=== PATIENT | female | born 2000 | race Caucasian/White ===

== ENCOUNTER 2019-12-20 20:45 | Emergency (ER) | payer MEDICAID ==
[~2019-12-20] VITALS: Ht 175.3 cm; Wt 70.0 kg
[2019-12-20] MEDS ORDERED: PREDNISONE 20MG TABLET PO STA (21:56)
[2019-12-20] MEDS ORDERED: ALBUTEROL (0.083%) 2.5MG/3ML NEB HHN STA (21:56)
[2019-12-20] MEDS ORDERED: IPRATROPIUM BROMIDE (0.02%) 0.5MG/2.5ML NEB HHN STA (21:56)
[2019-12-20 22:43] LABS: BASOPHILS % 0.2 % (0.0-2.0); EOSINOPHILS % 4.5 % (0.0-5.0); HEMATOCRIT. 37.9 % (36.0-48.0); LYMPHOCYTES % 61.1 % (20.0-50.0); MEAN CORPUSCULAR HEMOGLOBIN 30.2 pg (28.0-32.0); MEAN CORPUSCULAR VOLUME 88.3 fL (81.0-99.0); MEAN PLATELET VOLUME 8.4 fl (7.4-10.4); MONOCYTES % 7.3 % (2.0-8.0); NEUTROPHILS % 26.9 % (40.0-76.0); PLATELET 225 x1000/uL (130-400); RED BLOOD CELL COUNT 4.29 mill/uL (4.2-5.4); RED CELL DISTRIBUTION WIDTH 14.1 % (11.6-14.6)
[2019-12-20 22:49] LABS: CHLORIDE 104 mEq/L (98-107)
[2019-12-20 22:54] LABS: HCG SCREEN NEGATIVE
[2019-12-21 00:48] VITALS: BP 130/80
== END 2019-12-21 00:49 | disposition home or self-care (01) ==
LOC: ER 20:45
DX: R07.89 Other chest pain (principal); J45.909 Unspecified asthma, uncomplicated; Z20.828 Contact with and (suspected) exposure to other viral communicable diseases
CPT/HCPCS: 36415; 71045; 80053; 84484; 84703; 85025; 87635; 93005; 94640; 99285; C9803; J7512; Z7610

== ENCOUNTER 2020-02-17 17:33 | Emergency (ER) | payer MEDICAID ==
[~2020-02-17] VITALS: Ht 175.3 cm; Wt 57.0 kg
[2020-02-17 17:35] VITALS: BP 112/66
== END 2020-02-17 18:05 | disposition home or self-care (01) ==
LOC: ER 17:33
DX: L42 Pityriasis rosea (principal); J45.909 Unspecified asthma, uncomplicated
CPT/HCPCS: 99282